=== PATIENT | male | born 1940 | race Caucasian/White ===

== ENCOUNTER 2018-01-11 21:23 | Observation (INO) | payer MEDICARE, OTHER ==
[~2018-01-11 21:23] MED LIST: ISOVUE-370 76%-LOCM 1 ML ONE
[2018-01-11 21:49] LABS: #Eosinphils 0.2 thou/uL (0.0-0.7); #Lymphocytes 2.7 thou/uL (1.20-3.40); #Monocytes 0.6 thou/uL (0.11-0.59); #Neutrophils 2.6 thou/uL (1.40-6.50); %Basophils 0.7 % (0.0-1.0); %Eosinophils 3.6 % (0.0-10.0); %Lymphocytes 43.4 % (21.0-51.0); %Monocytes 10.3 % (0.0-10.0); %Neutrophils 42.1 % (42.0-75.0); Hemoglobin 12.5 g/dL (14.0-18.0); Mean Corpuscular HGB CONC 34.6 g/dL (32.0-36.0); Mean Corpuscular Hemoglobin 31.9 pg (27.0-31.0); Mean Corpuscular Volume 92.2 fl (80.0-94.0); Mean Platelet Volume 6.3 fL (7.4-10.4); Platelet Count 270 thou/uL (130-400); Red Blood Cell (RBC) Count 3.93 mill/uL (4.70-6.10); White Blood Cell (WBC) Count 6.2 thou/uL (4.8-10.8)
[2018-01-11 21:59] LABS: ALT (SGPT) 11 U/L (8-55); AST (SGOT) 18 U/L (5-34); Albumin 4.1 g/dL (3.4-4.8); Alkaline Phosphatase 85 U/L (40-150); Anion Gap 12 mmol/L (10-20); BUN (Urea Nitrogen) 19 mg/dL (8.4-25.7); Bilirubin, Total 0.2 mg/dL (0.2-1.2); CK (CPK) 52 U/L (30-200); Calc. Creatinine Clearance 0 mL/min (70-130); Calcium 9.3 mg/dL (7.8-10.44); Carbon Dioxide 28 mmol/L (23-31); Chloride 101 mmol/L (98-107); Estimated GFR-MDRD 69; Globulin 3.1 g/dL (2.4-3.5); Glucose 100 mg/dL (83-110); Potassium 4.1 mmol/L (3.5-5.1); Protein, Total 7.2 g/dL (5.8-8.1); Sodium 137 mmol/L (136-145)
--- NOTE | 2018-01-11 22:00 | RAD ---
PORTABLE CHEST: 01/11/18 HISTORY: Chest pain. Lung gaspar are clear. No infiltrate or vascular congestion. Heart size is within normal range. Posto p sternotomy changes noted. IMPRESSION: No acute finding. POS: [facility]
[2018-01-11 22:03] LABS: CKMB 0.9 ng/mL (0-6.6); Troponin I Less than 0.010 ng/mL (< 0.028)
[2018-01-11] MEDS ORDERED: Labetalol HCl 100 MG/20 ML VIAL ONE (22:40)
--- NOTE | 2018-01-11 22:59 | CT ---
CT AORTOGRAM CHEST AND ABDOMEN WITH CONTRAST: 01/11/18 Multiple axial tomograms obtained through the chest and abdomen with arterial phase contrast. Multipl hallie reconstructions with 3D postprocessing performed. INDICATIONS: Chest pain. radiation to back. History of abdominal aortic aneurysm. Assess for dissection. FINDINGS: the thoracic aorta shows atherosclerotic change. There is mild aneurysmal ectasia of the ascending ao rta with measurement recorded at approximately 3.8 cm in the axial plane. Mild ectasia of the descend ing thoracic aorta also noted. Upper descending thoracic aorta measured at 3.3 cm. There is periphera l thrombus and calcification. No evidence of thoracic aortic dissection. Abdominal aorta shows atherosclerotic change with peripheral calcification and peripheral soft plaque which produces irregularity of the lumen. There is aneurysmal dilatation of the distal abdominal aor ta with diameter measuring 3.9 to 4.0 cm. the small saccular aneurysm does have peripheral soft plaqu e/thrombus. It extends to the bifurcation. There is mild ectasia of the left common iliac measured at 1.5 cm. The right common iliac is normal caliber. There is no evidence of abdominal aortic dissectio n. No significant stenosis at the origin of the celiac artery or superior mesenteric artery. No signific ant renal artery stenosis identified. The visualized lung gaspar are clear. No infiltrate or effusion. The liver, spleen and pancreas are unremarkable. Bilateral renal cystic lesions. Kidneys otherwise un remarkable. Bowel loops unremarkable as visualized. IMPRESSION: 1. Atherosclerotic changes involving the thoracic and abdominal aorta with mild aneurysmal dilat ation of the thoracic aorta as described. 2. Mild aneurysmal dilatation of the lower abdominal aorta measuring up to 4.5 cm as described. No evidence of aortic dissection. POS: [facility]
[2018-01-11 23:24] LABS: Bilirubin Negative (Negative); Blood, Urine Negative (Negative); Clarity CLEAR (Clear); Glucose, Urine (Dipstick) Negative (Negative); Leukocyte Negative (Negative); Nitrite Negative (Negative); Protein, Urine (Dipstick) Negative (Neg-Trace); Specific Gravity, Urine 1.012 (1.002-1.036); Urobilinogen 0.2 mg/dL (0.2-1.0); pH, Urine 6.5 (5.0-9.0)
[2018-01-11] MEDS ORDERED: Morphine 4 MG/ML VIAL ONE (23:35)
[2018-01-11] MEDS ORDERED: Ondansetron HCl/PF 4 MG/2 ML Vial ONE (23:35)
[2018-01-12 01:34] LABS: Troponin I Less than 0.010 ng/mL (< 0.028)
--- NOTE | 2018-01-12 01:49 | PDOC.FPRHP ---
- History of Present Illness Chief Complaint: Chest pain History of Present Illness: 77 yo male with a pmhx of AL X2 (last one in 2012) and 3V CABG in 2004 who presents with chest pain. He describes it as across his entire chest. He also complains of some indigestion and nausea. He says that this chest pain radiate to his back; denies radiation up his jaw or down his arm and denies diaphoresis. The chest pain occurred right after eating dinner where he ate a hamburger and a piece of cake. States the he feels like the chest pain could also be a gas bubble after eating lunch. He says that his procurement internship is Dr. Alisha Álvarez and PCP is Dr. Uvaldo Álvarez who are in [place]. He had a stress test last week for similar chest pain in which the procurement internship told him it was abnormal but he doesn't know what was abnormal about it. He says that 2 weeks ago he had a similar pain which is what promted the stress test. He reported that he also was found to have enlarged lymph nodes on a recent CT scan as well. He endorses smoking a little less than a pack of cigarettes a day but used to smoke 2 ppd. He denies any difficulty breathing. He has a pertinent family hx of a brother who from cancer and another brother who in his 40s from an AL. He also endorses recent weight loss. ED Course: In ED: There was concern for aortic dissection, however CTA showed stable 4.5cm Aortic Aneurysm. CV Surgery was consulted and will see patient in the morning. He received Zofran 4mg IVP, Morphine 4mg IVP, Labetalol 10mg IVP in the ED, and was given Clonidine 0.1mg and ASA prior to arrival to the ED. - Allergies/Adverse Reactions Allergies Allergy/AdvReac Type Severity Reaction Status Date / Time No Known Allergies Allergy Verified 01/12/18 02:11 - Home Medications Medication Instructions Recorded Confirmed Type Acetaminophen With Codeine 1 tablet PO BID PRN 01/12/18 01/12/18 History [Tylenol with Codeine #3] Aspirin [Ecotrin] 81 mg PO DAILY 01/12/18 01/12/18 History Atorvastatin Calcium [Lipitor] 40 mg PO HS 01/12/18 01/12/18 History Butalbital/Aspirin/Caffeine 1 tab PO DAILY PRN 01/12/18 01/12/18 History [Xdenva-Imwwkho-Twbbk 50-325-40] Carvedilol [Coreg] 6.25 mg PO BID 01/12/18 01/12/18 History Clopidogrel Bisulfate [Plavix] 75 mg PO HS 01/12/18 01/12/18 History Diltiazem HCl [Diltiazem ER] 120 mg PO DAILY 01/12/18 01/12/18 History Fluticasone Propionate [Flonase 2 spray EA NARE BID 01/12/18 01/12/18 History Nasal [place]] Isosorbide Mononitrate [Isosorbide 30 mg PO DAILY 01/12/18 01/12/18 History Mononitrate ER] Losartan Potassium 25 mg PO BID 01/12/18 01/12/18 History Montelukast Sodium [Singulair] 10 mg PO HS 01/12/18 01/12/18 History Ondansetron [Ondansetron ODT] 4 mg PO BID PRN 01/12/18 01/12/18 History Pantoprazole [Protonix] 40 mg PO DAILY 01/12/18 01/12/18 History Vit C/E/Zn/Coppr/Lutein/Zeaxan 1 capsule PO DAILY 01/12/18 01/12/18 History [Preservision Areds 2 Softgel] cloNIDine [Catapres] 0.1 mg PO BID PRN 01/12/18 01/12/18 History - History PMHx: HTN, HLD, CAD s/p 3V CABG (2004), Hx of AL x2 (most recent 2012); GERD, COPD, Hx of a TIA, AAA ~4.5cm medically managed PSHx: appendectomy, vasectomy FHx:brother-AL in 40s, ; brother-cancer, , prostate Social: smokes ~1ppd, with prior hx of 2ppd, drinks occasionally, denies drug use - Review of Systems General: reports: weight/appetite/sleep changes (weight loss ~6 pounds). denies : fever/chills ENT: denies: nasal congestion, rhinorrhea Respiratory: denies: cough, congestion, shortness of breath Cardiovascular: reports: chest pain. denies: palpitation, edema, paroxysmal nocturnal dyspnea, orthopnea Gastrointestinal: reports: nausea. denies: vomiting, diarrhea, constipation, abdominal pain, GI bleeding Genitourinary: denies: incontinence, dysuria Skin: denies: rashes, lesions Musculoskeletal: denies: pain, tenderness Neurological: denies: numbness, syncope Psychological: denies: anxiety, depression - Vital signs BP: 107/55 HR: 54 RR: 12 Tmax: 98.4 Pox: 96% on RA Wt: 90kg - Physical Exam Constitutional: NAD, awake, alert and oriented, well developed HEENT: normocephalic and atraumatic, PERRLA, conjunctiva clear, no scleral icterus, grossly normal vision, grossly normal hearing, normal nasal mucosa, MMM Neck: supple, trachea midline Chest: no-tender to palpation Heart: other (distant heart sounds) Lungs: other (decreased breath sounds bilaterally throughout all lung gaspar) Abdomen: soft, non-tender, no masses/distention, other (hypoactive bowel sounds) Musculoskeletal: normal structure, normal tone Neurological: no focal deficit Skin: no rash/lesions, good turgor Heme/Lymphatic: no unusual bruising or bleeding, no purpura Psychiatric: normal mood and affect FMR H&P: Results - Labs Result Diagrams: 01/12/18 04:24 01/12/18 04:24 Lab results: WBC 6.2 thou/uL (4.8-10.8) 01/11/18 21:30 Hgb 12.5 g/dL (14.0-18.0) L 01/11/18 21:30 Hct 36.2 % (42.0-52.0) L 01/11/18 21:30 MCV 92.2 fl (80.0-94.0) 01/11/18 21:30 Plt Count 270 thou/uL (130-400) 01/11/18 21:30 Neutrophils % 42.1 % (42.0-75.0) 01/11/18 21:30 Sodium 137 mmol/L (136-145) 01/11/18 21:30 Potassium 4.1 mmol/L (3.5-5.1) 01/11/18 21:30 Chloride 101 mmol/L (98-107) 01/11/18 21:30 Carbon Dioxide 28 mmol/L (23-31) 01/11/18 21:30 BUN 19 mg/dL (8.4-25.7) 01/11/18 21:30 Creatinine 1.04 mg/dL (0.6-1.3) 01/11/18 21:30 Glucose 100 mg/dL (83-110) 01/11/18 21:30 Calcium 9.3 mg/dL (7.8-10.44) 01/11/18 21:30 Total Bilirubin 0.2 mg/dL (0.2-1.2) 01/11/18 21:30 AST 18 U/L (5-34) 01/11/18 21:30 ALT 11 U/L (8-55) 01/11/18 21:30 Alkaline Phosphatase 85 U/L (40-150) 01/11/18 21:30 Creatine Kinase 52 U/L (30-200) 01/11/18 21:30 CK-MB (CK-2) 0.9 ng/mL (0-6.6) 01/11/18 21:30 Serum Total Protein 7.2 g/dL (5.8-8.1) 01/11/18 21:30 Albumin 4.1 g/dL (3.4-4.8) 01/11/18 21:30 Lipase 59 U/L (8-78) 01/11/18 21:30 Urine Ketones Negative mg/dL (Negative) 01/11/18 23:16 Urine Blood Negative (Negative) 01/11/18 23:16 Urine Nitrite Negative (Negative) 01/11/18 23:16 Ur Leukocyte Esterase Negative (Negative) 01/11/18 23:16 - EKG Interpretation EKG: NSR - Radiology Interpretation Other Additional comment: CT dissection: negative for dissection; AAA ~4.5cm CXR: No acute findings FMR H&P: A/P - Problem List (1) Atypical chest pain Current Visit: Yes Status: Acute Code(s): R07.89 - OTHER CHEST PAIN (2) AAA (abdominal aortic aneurysm) Current Visit: Yes Status: Acute Code(s): I71.4 - ABDOMINAL AORTIC ANEURYSM , WITHOUT RUPTURE (3) HTN (hypertension) Current Visit: Yes Status: Acute Code(s): I10 - ESSENTIAL (PRIMARY) HYPERTENSION (4) HLD (hyperlipidemia) Current Visit: Yes Status: Acute Code(s): E78.5 - HYPERLIPIDEMIA, UNSPECIFIED (5) CAD (coronary artery disease) Current Visit: Yes Status: Acute Code(s): I25.10 - ATHSCL HEART DISEASE OF [place] CORONARY ARTERY W/O ANG PCTRS (6) S/P CABG x 3 Current Visit: Yes Status: Acute Code(s): Z95.1 - PRESENCE OF AORTOCORONARY BYPASS GRAFT (7) Hx of myocardial infarction Current Visit: Yes Status: Acute Code(s): I25.2 - OLD MYOCARDIAL INFARCTION (8) GERD (gastroesophageal reflux disease) Current Visit: Yes Status: Acute Code(s): K21.9 - GASTRO-ESOPHAGEAL REFLUX DISEASE WITHOUT ESOPHAGITIS (9) Tobacco abuse Current Visit: Yes Status: Acute Code(s): Z72.0 - TOBACCO USE (10) COPD (chronic obstructive pulmonary disease) Current Visit: Yes Status: Acute - Plan 1.) Atypical Chest pain- However, patient has an extensive cardiac hx of AL X2 and s/p 3V CABG in 2004. We will order a FLP, HgA1c, BNP. We will trend his cardiac enzymes. First troponin was wnl. EKG showed NSR. We will increase Atorvastatin from 40mg to 80mg and continue home medications. We will call procurement internship in am to find out results of stress test that was completed a week ago. We will likely hold off on ordering a stress test here or consulting cardiology since he just had a stress test and his trops and EKG have been normal. However, he is NPO mainly because CV surgery was consulted in the ED and are planning to see him this am for his AAA. We will provide Morphine, Nitro PRN. Possibly indigestion, will try GI cocktail if pain returns. Continue aspirin 81mg daily and plavix. 2) HTN - Uncontrolled. Continue home medications. Titrate as needed. 3) HLD - Fasting lipid panel pending. However, we plan to increase his atorvastatin to 80mg daily. Continue home medications 4) COPD - Controlled. Continue home medications. 5) Tobacco abuse - Soft Iron Inspector on cessation and provide a nicotine patch. 6) Aortic Aneurysm- stable, f/u with Dr. Drummond's recommendations 7) MARY vs CKD. Unclear of pt's baseline. F/u with BMP in the am. 8) GERD - Protonix FMR H&P: Upper Level - Pertinent history This is a 77 yo WM w/ significant PMH of CAD s/p CABG in 2004, AL in 2013, Aortic Aneurysm medically treated, TIA, COPD, Tobacco abuse, presents w/ chest pain radiating to his back. Denies any radiation to his arms, or neck. + SOB and nausea associated with it. CP happened after he had eaten lunch. States that it felt like a gas bubble, and improved after morphine. Patient states that he had an abnormal stress test about 2 weeks ago with his procurement internship, but unsure what was abnormal about it. He is suppose to see his procurement internship later today. PE: Gen: AOx4. In no acute distress. Resting comfortably. CV: RRR. Distant heart sounds. Lungs: CTA bilaterally, but diminished. Abd: Non tender to palpation Ext: No LE edema. Diminished pulses bilaterally A/P: 1) Atypical Chest pain r/o ACS - Patient has multiple risk factors for ACS. ASA , FLP, HgA1c, BNP, CE x3. We will increase Atorvastatin from 40mg to 80mg and continue home medications. Call procurement internship in am to find out results of stress test. Morphine, Nitro PRN. Possibly indigestion, will try GI cocktail if pain returns. 2) HTN - continue home medications. 3) HLD - Continue home medications 4) COPD - Continue home medications 5) Tobacco abuse - Soft Iron Inspector on cessation 6) Aortic Aneurysm stable - f/u with Dr. Drummond's recommendations 7) MARY vs CKD. F/u with BMP in the am. 8) GERD - Protonix - Plan Date/Time: 01/12/18 [id number] I, [], have evaluated this patient and agree with findings/plan as outlined by research program internship resident. Pertinent changes/additions are listed here. Attending Addendum - Attending Addendum Date/Time: 01/12/18 3286 I personally evaluated the patient and discussed the management with Dr. Johansen. I agree with and repeated the History, Examination, Assessment and Plan documented above with any addition or exceptions noted below. Pt currently chest pain free. He says he has been to the ED "a lot" for this type of chest pain, and it is different from his cp that lead to his cabg, which went to his neck and down his arms. Exam as above. A/P: 77 y/o with h/o CAD with chest pain -will call his procurement internship for results of recent stress test, strongly consider cardiology consultation
[2018-01-12 02:15] VITALS: BMI 29.0
[2018-01-12] MEDS ORDERED: Ondansetron ODT 4 MG TAB PO PRN ×2 (02:29→04:43)
[2018-01-12] MEDS ORDERED: Nitroglycerin 0.4 MG TAB (25 Tab Bottle) PO PRN (02:34)
[2018-01-12] MEDS ORDERED: cloNIDine 0.1 MG TAB PO PRN (04:43)
[2018-01-12 05:24] LABS: #Basophils 0.1 thou/uL (0.0-0.2); #Eosinphils 0.2 thou/uL (0.0-0.7); #Monocytes 0.5 thou/uL (0.11-0.59); #Neutrophils 2.3 thou/uL (1.40-6.50); %Basophils 1.1 % (0.0-1.0); %Eosinophils 4.5 % (0.0-10.0); %Lymphocytes 39.7 % (21.0-51.0); %Monocytes 9.6 % (0.0-10.0); %Neutrophils 45.1 % (42.0-75.0); Hemoglobin 10.7 g/dL (14.0-18.0); Mean Corpuscular HGB CONC 34.8 g/dL (32.0-36.0); Mean Corpuscular Hemoglobin 33.2 pg (27.0-31.0); Mean Corpuscular Volume 95.4 fl (80.0-94.0); Mean Platelet Volume 6.7 fL (7.4-10.4); Platelet Count 209 thou/uL (130-400); RBC Distribution Width 12.1 % (11.5-14.5); Red Blood Cell (RBC) Count 3.21 mill/uL (4.70-6.10); White Blood Cell (WBC) Count 5.1 thou/uL (4.8-10.8)
[2018-01-12 05:38] LABS: Hemoglobin A1c 5.5 % (4.0-6.0)
[2018-01-12 05:53] LABS: Anion Gap 12 mmol/L (10-20); BUN (Urea Nitrogen) 18 mg/dL (8.4-25.7); Calc. Creatinine Clearance 82 mL/min (70-130); Calcium 8.5 mg/dL (7.8-10.44); Carbon Dioxide 24 mmol/L (23-31); Cardiac Risk 3.9 (Less than 4.5); Chloride 102 mmol/L (98-107); Cholesterol 124 mg/dl (< 200 Desired); Estimated GFR-MDRD 78; Glucose 122 mg/dL (83-110); HDL Cholesterol 32 mg/dL (>60 Neg Risk); LDL Cholesterol, Calculated 62 mg/dL; Potassium 3.7 mmol/L (3.5-5.1); Sodium 134 mmol/L (136-145); Triglycerides 152 mg/dL (Less than 150); Troponin I Less than 0.010 ng/mL (< 0.028)
--- NOTE | 2018-01-12 07:37 | CON ---
DATE OF CONSULTATION: 01/12/2018 This is a 77-year-old gentleman who has lived in [place], [place] until recently moved to [place], [place] to be closer to family. He had a history of coronary bypass grafting in the past by Dr. White and had a history of thoracic and abdominal aneurysms. He presented with some chest discomfort, indigestion and nausea with negative cardiac enzymes. A CT scan showed a 3.9 to 4 cm distal abdominal aortic ane urysm with no significant aneurysmal dilatation in any other part of his aorta. His left internal ma mmary artery graft was visualized and patent and there were 2 saphenous vein grafts that appeared to originate from the ascending aorta, but I could not follow these out distally. He has a history of h ypertension, dyslipidemia. He has a history of COPD, history of TIA. PAST SURGICAL HISTORY: Includes a CABG, appendectomy, vasectomy. SOCIAL HISTORY: He continues to smoke a pack of cigarettes a day. PHYSICAL EXAMINATION: GENERAL: He is a stable appearing gentleman in no distress, he was actually awakened from his sleep for this interview. His height is 5 feet 9 inches. His weight is 197. VITAL SIGNS: His blood pressure is about 100/60, heart rate 60. NECK: No carotid bruits. LUNGS: Clear to auscultation. CARDIAC: Regular rate and rhythm this morning. Somewhat distant heart sounds. ABDOMEN: Soft and nontender and I am unable to palpate his aneurysm. EXTREMITIES: Without edema and he has weak, but present posterior tibial pulses with evidence of sap henous vein harvesting from the left leg. PLAN: At this time, no further intervention needs to be considered for his abdominal aneurysm other than yearly ultrasonography and I have discussed this with the patient and family.
[2018-01-12] MEDS ORDERED: FLUTICASONE PROPIONATE EA NARE SCH (09:00)
[2018-01-12] MEDS ORDERED: Aspirin 81 mg Enteric Coated Tablet PO SCH ×3 (09:00)
[2018-01-12] MEDS ORDERED: Losartan 25 MG TAB PO SCH ×2 (09:00)
[2018-01-12] MEDS ORDERED: Aspirin 325 mg Enteric Coated Tablet PO SCH (09:00)
[2018-01-12] MEDS ORDERED: Fluticasone Propionate Nasal Spray 16 gm Bottle NASAL SCH ×2 (09:00)
[2018-01-12] MEDS ORDERED: Nicotine 21 MG PATCH TD SCH (09:00)
[2018-01-12] MEDS ORDERED: DILTIAZEM HCL 120 MG PO SCH (09:00)
[2018-01-12] MEDS ORDERED: PANTOPRAZOLE 40 MG PO SCH (09:00)
[2018-01-12] MEDS ORDERED: Carvedilol 6.25 MG TAB PO SCH ×2 (09:00)
[2018-01-12 11:33] VITALS: BP 127/59; TEMP 98.3
[2018-01-12] MEDS: CARVEDILOL 6.25 MG PO SCH ×2 (12:43→13:27)
[2018-01-12] MEDS: DILTIAZEM CD 120 MG PO SCH ×2 (12:44→13:28)
[2018-01-12] MEDS: ISOSORBIDE MONONITRATE 30 MG PO SCH ×2 (12:44→13:27)
[2018-01-12] MEDS: LOSARTAN 25 MG PO SCH ×2 (12:44→13:28)
--- NOTE | 2018-01-12 13:22 | PDOC.EVN ---
Event Note - Event Note Event Note: 01/12/18 1:21 Spoke with SECURITY MANAGEMENT SPECIALIST at Dr Álvarez's office (patient's nut packer) and they recommended another cath soon for minor stress test changes and continued chest pain. He underwent the stress test 2 weeks ago and was Rx nitrates for chest pain as needed until cath was scheduled. Patient has a scheduled f/u appt tomorrow and office was happy to reschedule as needed. Also spoke with Dr Dominique who recommended Med Rec include Nitros and BB prior to discharge and given negative w/u this hospital stay he can f/u with his nut packer tomorrow. Ace Marinelli DO <Ace Marinelli - Last Filed: 01/12/18 13:14> Attending Addendum - Attending Addendum Date/Time: 01/13/18 1011 I personally evaluated the patient and discussed the management with Dr. Marinelli. I agree with the History, Examination, Assessment and Plan documented above with any addition or exceptions noted below. Ok for discharge, already has follow up scheduled tomorrow. <Kyle Deleon - Last Filed: 01/13/18 10:11>
[2018-01-12] MEDS ORDERED: Atorvastatin Calcium 40 MG TAB PO SCH ×2 (21:00)
[2018-01-12] MEDS ORDERED: ATORVASTATIN CALCIUM 40 MG PO SCH (21:00)
[2018-01-12] MEDS ORDERED: Clopidogrel Bisulfate 75 MG TAB PO SCH ×2 (21:00)
[2018-01-12] MEDS ORDERED: MONTELUKAST SODIUM 10 MG PO SCH (21:00)
[2018-01-12] MEDS ORDERED: CLOPIDOGREL BISULFATE 75 MG PO SCH (21:00)
[2018-01-12] MEDS ORDERED: Montelukast Sodium 10 mg Tablet PO SCH ×2 (21:00)
--- NOTE | 2018-01-13 04:03 | DIS-2 ---
DATE OF ADMISSION: 01/12/2018 DATE OF DISCHARGE: 01/12/2018 RESIDENT: Ace Marinelli DO ADMITTING ATTENDING: Kyle Deleon MD DISCHARGE ATTENDING: Kyle Deleon MD CONSULTATION DURING THIS ADMISSION: Cardiothoracic Surgery was consulted for AAA. PROCEDURES: There were no procedures during the stay. PRIMARY DIAGNOSES: Atypical chest pain, abdominal aortic aneurysm. SECONDARY DIAGNOSES: Hypertension, history of coronary artery disease, gastroesophageal reflux disea se. DISCHARGE MEDICATIONS: Aspirin 81 mg daily, atorvastatin 80 mg daily, Coreg 6.25 mg daily, clonidine 0.1 p.o. b.i.d. as needed, Plavix 75 mg p.o. nightly, diltiazem 120 mg p.o. daily, fluticasone nasal spray b.i.d. schedule, isosorbide mononitrate 30 mg p.o. daily, losartan 25 mg p.o. b.i.d., Singulai r 10 mg p.o. nightly. HOSPITAL COURSE: Mr. Chaparro was admitted to observation for chest pain given his severe history of CAD with recent CABG and DE. His workup was negative including trended troponins, EKGs, and chest pa in resolved within 12 hours likely due to GI illness. He has a followup with his optical element coater in his hometown 2 [place]3 hours away tomorrow. He will likely need cardiac catheterization. Abdominal aortic aneurysm was also evaluated while here in the hospital by Cardiothoracic Surgery and deemed nonsurgic al at this time. Continue following with ultrasounds yearly. Patient's blood pressure was controlle d while in the hospital on home medications. DISPOSITION: Stable. DISCHARGE INSTRUCTIONS: 1. Location: Home. 2. Diet: Cardiac diet. 3. Activity: Limited physical activity until he follows up with Cardiology. 4. Followup: Cardiology tomorrow.
--- NOTE | 2018-01-15 14:23 | EKG ---
Test Reason : Blood Pressure : / mmHG Vent. Rate : 069 BPM Atrial Rate : 069 BPM P-R Int : 186 ms QRS Dur : 100 ms QT Int : 412 ms P-R-T Axes : 062 078 059 degrees QTc Int : 441 ms Normal sinus rhythm Normal ECG Confirmed by ELMA PAIZ M.D. ([id number]), publication editor KATHLEEN BAUTISTA ([id number]) on 01/15/2018 2:21:57 PM Referred By: Confirmed By:ELMA PAIZ M.D.
== END 2018-01-12 14:52 | disposition home or self-care (01) ==
LOC: ERS 21:23 → 2SW 01-12 01:39
PROVIDERS: ADMIT Family Medicine; ATTEND Family Medicine
DX: R07.89 Other chest pain (principal); I71.4 Abdominal aortic aneurysm, without rupture; I10 Essential (primary) hypertension; I25.10 Atherosclerotic heart disease of native coronary artery without angina pectoris; K21.9 Gastro-esophageal reflux disease without esophagitis; I25.2 Old myocardial infarction; K30 Functional dyspepsia; R11.0 Nausea; F17.210 Nicotine dependence, cigarettes, uncomplicated; J44.9 Chronic obstructive pulmonary disease, unspecified; E78.5 Hyperlipidemia, unspecified; Z79.82 Long term (current) use of aspirin; Z79.02 Long term (current) use of antithrombotics/antiplatelets; Z79.51 Long term (current) use of inhaled steroids; Z79.899 Other long term (current) drug therapy; Z98.52 Vasectomy status; Z95.1 Presence of aortocoronary bypass graft; Z90.49 Acquired absence of other specified parts of digestive tract; Z86.73 Personal history of transient ischemic attack (TIA), and cerebral infarction without residual deficits
CPT/HCPCS: 71045; 71275; 80048; 80053; 80061; 81003; 82550; 82553; 83036; 83690; 83880; 84484 ×3; 85025 ×2; 93005; 96374; 96375; 99285; 99406; G0378; 36415; J2270; J2405

== ENCOUNTER 2018-01-15 20:15 | Emergency (ER) | payer MEDICARE, OTHER ==
[2018-01-15 20:41] LABS: #Basophils 0.1 thou/uL (0.0-0.2); #Eosinphils 0.2 thou/uL (0.0-0.7); #Lymphocytes 1.9 thou/uL (1.20-3.40); #Monocytes 0.5 thou/uL (0.11-0.59); #Neutrophils 2.6 thou/uL (1.40-6.50); %Basophils 1.2 % (0.0-1.0); %Eosinophils 3.7 % (0.0-10.0); %Lymphocytes 35.9 % (21.0-51.0); %Monocytes 10.4 % (0.0-10.0); %Neutrophils 48.8 % (42.0-75.0); Hemoglobin 12.2 g/dL (14.0-18.0); Mean Corpuscular HGB CONC 35.2 g/dL (32.0-36.0); Mean Corpuscular Hemoglobin 32.5 pg (27.0-31.0); Mean Corpuscular Volume 92.3 fl (80.0-94.0); Mean Platelet Volume 6.2 fL (7.4-10.4); Platelet Count 267 thou/uL (130-400); RBC Distribution Width 12.1 % (11.5-14.5); Red Blood Cell (RBC) Count 3.75 mill/uL (4.70-6.10); White Blood Cell (WBC) Count 5.2 thou/uL (4.8-10.8)
--- NOTE | 2018-01-15 20:43 | RAD ---
TWO VIEWS OF THE CHEST: 01/15/18 COMPARISON: 01/11/18 HISTORY: Weakness, chest pain and nausea. FINDINGS: No pneumothorax, pleural fluid, focal consolidation, or alveolar edema. Midline sternotomy wires are noted. Lungs are hyperinflated suggesting stable air trapping. IMPRESSION: Stable pulmonary hyperinflation. No focal consolidation or alveolar edema. POS: [facility]
[2018-01-15 21:03] LABS: ALT (SGPT) 12 U/L (8-55); AST (SGOT) 20 U/L (5-34); Albumin 3.9 g/dL (3.4-4.8); Alkaline Phosphatase 71 U/L (40-150); Anion Gap 14 mmol/L (10-20); BUN (Urea Nitrogen) 19 mg/dL (8.4-25.7); Bilirubin, Total 0.3 mg/dL (0.2-1.2); CK (CPK) 53 U/L (30-200); Calc. Creatinine Clearance 0 mL/min (70-130); Calcium 9.2 mg/dL (7.8-10.44); Carbon Dioxide 25 mmol/L (23-31); Chloride 102 mmol/L (98-107); Estimated GFR-MDRD 82; Globulin 2.8 g/dL (2.4-3.5); Glucose 106 mg/dL (83-110); Potassium 3.9 mmol/L (3.5-5.1); Protein, Total 6.7 g/dL (5.8-8.1); Sodium 137 mmol/L (136-145)
[2018-01-15 21:06] LABS: CKMB 0.9 ng/mL (0-6.6); Troponin I Less than 0.010 ng/mL (< 0.028)
--- NOTE | 2018-01-15 22:15 | CT ---
HEAD CT WITHOUT CONTRAST: 01/15/18 COMPARISON: None. HISTORY: Pain. TECHNIQUE: Serial axial CT imaging at 5 mm intervals from vertex through skull base without contrast. FINDINGS: There is a lateral scalp lipoma in the left frontal region on image 21. The imaged paranasal sinuses/ mastoid air cells are well aerated. There is atherosclerotic calcification of the cavernous carotid a rteries. There is no intracranial hemorrhage, midline shift, mass effect, or ventricular enlargement. There is periventricular hypodensity suggesting a degree of small vessel disease. IMPRESSION: Findings suggesting small vessel disease. No intracranial hemorrhage. POS: [facility]
[2018-01-15] MEDS ORDERED: Acetaminophen 500 MG TAB ONE (22:21)
[2018-01-15] MEDS ORDERED: Meclizine HCl 25 MG TAB ONE (22:21)
== END 2018-01-15 23:48 | disposition home or self-care (01) ==
LOC: ERS 20:15
DX: R51 Headache (principal); R42 Dizziness and giddiness; I10 Essential (primary) hypertension; I25.2 Old myocardial infarction; K21.9 Gastro-esophageal reflux disease without esophagitis; E78.5 Hyperlipidemia, unspecified; J44.9 Chronic obstructive pulmonary disease, unspecified; F17.210 Nicotine dependence, cigarettes, uncomplicated; Z86.73 Personal history of transient ischemic attack (TIA), and cerebral infarction without residual deficits; Z71.6 Tobacco abuse counseling
CPT/HCPCS: 36415; 70450; 71046; 80053; 82553; 83880; 84484; 85025; 93005; 99406

== ENCOUNTER 2018-02-27 15:34 | Emergency (ER) | payer MEDICARE, OTHER ==
[2018-02-27 16:31] LABS: Bilirubin Negative (Negative); Blood, Urine Negative (Negative); Clarity CLEAR (Clear); Glucose, Urine (Dipstick) Negative (Negative); Leukocyte Negative (Negative); Nitrite Negative (Negative); Protein, Urine (Dipstick) Negative (Neg-Trace); Specific Gravity, Urine 1.012 (1.002-1.036); Urobilinogen 0.2 mg/dL (0.2-1.0)
[2018-02-27 17:14] LABS: #Eosinphils 0.7 thou/uL (0.0-0.7); #Lymphocytes 1.3 thou/uL (1.20-3.40); #Monocytes 0.7 thou/uL (0.11-0.59); #Neutrophils 5.5 thou/uL (1.40-6.50); %Basophils 0.1 % (0.0-1.0); %Eosinophils 8.5 % (0.0-10.0); %Lymphocytes 15.5 % (21.0-51.0); %Monocytes 8.4 % (0.0-10.0); %Neutrophils 67.6 % (42.0-75.0); Hemoglobin 11.4 g/dL (14.0-18.0); Mean Corpuscular HGB CONC 35.2 g/dL (32.0-36.0); Mean Corpuscular Hemoglobin 32.8 pg (27.0-31.0); Mean Corpuscular Volume 93.3 fl (80.0-94.0); Mean Platelet Volume 6.2 fL (7.4-10.4); Platelet Count 230 thou/uL (130-400); RBC Distribution Width 12.3 % (11.5-14.5); Red Blood Cell (RBC) Count 3.46 mill/uL (4.70-6.10); White Blood Cell (WBC) Count 8.1 thou/uL (4.8-10.8)
[2018-02-27] MEDS ORDERED: Ondansetron ODT 4 MG TAB ONE (17:27)
[2018-02-27] MEDS ORDERED: Morphine 4 MG/ML VIAL ONE (17:27)
[2018-02-27 17:48] LABS: ALT (SGPT) 13 U/L (8-55); AST (SGOT) 18 U/L (5-34); Albumin 3.8 g/dL (3.4-4.8); Alkaline Phosphatase 67 U/L (40-150); Anion Gap 13 mmol/L (10-20); BUN (Urea Nitrogen) 17 mg/dL (8.4-25.7); Bilirubin, Total 0.7 mg/dL (0.2-1.2); Calc. Creatinine Clearance 0 mL/min (70-130); Calcium 8.9 mg/dL (7.8-10.44); Carbon Dioxide 24 mmol/L (23-31); Chloride 100 mmol/L (98-107); Estimated GFR-MDRD 65; Globulin 2.7 g/dL (2.4-3.5); Glucose 103 mg/dL (83-110); Potassium 4.2 mmol/L (3.5-5.1); Protein, Total 6.5 g/dL (5.8-8.1); Sodium 133 mmol/L (136-145)
--- NOTE | 2018-02-27 21:36 | CT ---
CT ABDOMEN AND PELVIS WITH ORAL AND IV CONTRAST: Date: 02/27/18 HISTORY: Abdominal pain. FINDINGS: Correlation is made with CT aortic dissection protocol of 01/11/18. The lung bases are unremarkable. A small hiatal hernia is present. The liver, spleen, pancreas, and a drenal glands are normal. Bilateral renal cysts are again seen. No calcified gallstones are identifie d. No free air, free fluid, or lymphadenopathy is seen in the abdomen or pelvis. There are vascular calc ifications with a stable 4.0 cm abdominal aortic aneurysm and a 15.0 mm left common iliac artery aneu rysm. There are degenerative changes in the spine. The small bowel loops are not abnormally dilated. The prostate is enlarged. IMPRESSION: 1. Small hiatal hernia. 2. Bilateral renal cysts. 3. 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 4. Prostatic enlargement. POS: [facility]
--- NOTE | 2018-04-16 15:09 | EKG ---
Test Reason : ABD PAIN Blood Pressure : / mmHG Vent. Rate : 066 BPM Atrial Rate : 066 BPM P-R Int : 180 ms QRS Dur : 098 ms QT Int : 408 ms P-R-T Axes : 060 074 059 degrees QTc Int : 427 ms Normal sinus rhythm Nonspecific ST abnormality Abnormal ECG Confirmed by HECTOR GRIFFIN ([id number]), food editor KATHLEEN BAUTISTA ([id number]) on 04/16/2018 3:09:05 PM Referred By: Confirmed By:HECTOR GRIFFIN
== END 2018-02-27 20:01 | disposition home or self-care (01) ==
LOC: ERS 15:34
DX: K59.00 Constipation, unspecified (principal); I25.2 Old myocardial infarction; K21.9 Gastro-esophageal reflux disease without esophagitis; E78.5 Hyperlipidemia, unspecified; I10 Essential (primary) hypertension; J44.9 Chronic obstructive pulmonary disease, unspecified; F17.210 Nicotine dependence, cigarettes, uncomplicated; Z79.899 Other long term (current) drug therapy; Z86.73 Personal history of transient ischemic attack (TIA), and cerebral infarction without residual deficits; Z79.82 Long term (current) use of aspirin
CPT/HCPCS: 74177; 80053; 81003; 85025; 93005; 96361; 96374; J2270; Q0162

== ENCOUNTER 2018-09-19 19:23 | Emergency (ER) | payer MEDICARE, OTHER ==
[2018-09-19] MEDS ORDERED: hydrALAZINE 20 MG/ML VIAL ONE (19:51)
[2018-09-19 19:57] LABS: #Eosinphils 0.2 thou/uL (0.0-0.7); #Lymphocytes 2.5 thou/uL (1.20-3.40); #Monocytes 0.6 thou/uL (0.11-0.59); #Neutrophils 3.3 thou/uL (1.40-6.50); %Basophils 0.5 % (0.0-1.0); %Eosinophils 3.2 % (0.0-10.0); %Lymphocytes 37.9 % (21.0-51.0); %Monocytes 9.3 % (0.0-10.0); %Neutrophils 49.2 % (42.0-75.0); Hemoglobin 13.2 g/dL (14.0-18.0); Mean Corpuscular HGB CONC 33.9 g/dL (32.0-36.0); Mean Corpuscular Hemoglobin 33.7 pg (27.0-31.0); Mean Corpuscular Volume 99.4 fL (78.0-98.0); Mean Platelet Volume 6.8 fL (7.4-10.4); Platelet Count 389 thou/uL (130-400); RBC Distribution Width 11.8 % (11.5-14.5); Red Blood Cell (RBC) Count 3.92 mill/uL (4.70-6.10); White Blood Cell (WBC) Count 6.6 thou/uL (4.8-10.8)
--- NOTE | 2018-09-19 20:14 | RAD ---
PORTABLE CHEST: History: Chest pain. FINDINGS: Lung gaspar are clear. Heart and mediastinum unremarkable. Post op sternotomy changes noted. Aortic c alcification noted. No change from the exam of 01-11-18. IMPRESSION: No acute process. POS: [facility]
[2018-09-19 20:15] LABS: Bilirubin Negative (Negative); Blood, Urine Negative (Negative); Clarity CLEAR (Clear); Glucose, Urine (Dipstick) Negative (Negative); Leukocyte Negative (Negative); Nitrite Negative (Negative); Protein, Urine (Dipstick) Negative (Neg-Trace); Specific Gravity, Urine 1.012 (1.002-1.036); Urobilinogen 0.2 mg/dL (0.2-1.0); pH, Urine 6.5 (5.0-9.0)
[2018-09-19 20:18] LABS: ALT (SGPT) 13 U/L (8-55); AST (SGOT) 22 U/L (5-34); Albumin 4.3 g/dL (3.4-4.8); Alkaline Phosphatase 88 U/L (40-150); Anion Gap 13 mmol/L (10-20); BUN (Urea Nitrogen) 17 mg/dL (8.4-25.7); Bilirubin, Total 0.3 mg/dL (0.2-1.2); Calc. Creatinine Clearance 0 mL/min (70-130); Calcium 9.5 mg/dL (7.8-10.44); Carbon Dioxide 27 mmol/L (23-31); Chloride 104 mmol/L (98-107); Estimated GFR-MDRD 68; Globulin 3.7 g/dL (2.4-3.5); Glucose 115 mg/dL (83-110); Potassium 4.7 mmol/L (3.5-5.1); Sodium 139 mmol/L (136-145)
[2018-09-19 20:22] LABS: Troponin I Less than 0.010 ng/mL (< 0.028)
--- NOTE | 2018-09-19 20:45 | CT ---
CT HEAD NONCONTRAST: History: Weakness, generalized. History of stroke. FINDINGS: There is global atrophy, mild in degree. Ventricular system is age appropriate in size. Mild chronic ischemic disease is redemonstrated. There is no acute intracranial hemorrhage, midline shift, or mass effect. IMPRESSION: No acute intracranial abnormalities. POS: [facility]
[2018-09-19] MEDS ORDERED: diphenhydrAMINE 50 MG/ML VIAL ONE ×2 (21:18→21:58)
[2018-09-19] MEDS ORDERED: Metoclopramide HCl 10 MG/2 ML VIAL ONE (21:18)
--- NOTE | 2018-09-19 22:34 | CT ---
CT ABDOMEN AND PELVIS WITH CONTRAST: Technique: Multiple contiguous axial images were obtained through the abdomen and pelvis with IV enha ncement. Indication: Abdominal pain. Comparison: 02-27-18 FINDINGS: Lung bases clear. Liver, spleen, pancreas unremarkable. Adrenal glands unremarkable. Kidneys show several small renal cysts which were described previously and appears stable. No hydrone phrosis or urinary tract calculus. The urinary bladder is mildly distended. There is a mild thickenin g urinary bladder wall. Prostate is upper normal. Small bowel loops appear normal caliber. Appendix n ot identified. Stool throughout the colon. Aneurysmal dilation of the lower abdominal aorta with peripheral thrombus again noted. Diameter measu res approximately 4 cm and appears stable from prior exam. IMPRESSION: No acute finding or interval change noted. Abdominal aortic aneurysm again noted and bilateral renal cystic lesions again noted. POS: [facility]
== END 2018-09-19 23:15 | disposition home or self-care (01) ==
LOC: ERS 19:23
DX: I16.0 Hypertensive urgency (principal); I10 Essential (primary) hypertension; I25.2 Old myocardial infarction; I71.9 Aortic aneurysm of unspecified site, without rupture; K21.9 Gastro-esophageal reflux disease without esophagitis; E78.5 Hyperlipidemia, unspecified; J44.9 Chronic obstructive pulmonary disease, unspecified; F17.210 Nicotine dependence, cigarettes, uncomplicated; Z86.73 Personal history of transient ischemic attack (TIA), and cerebral infarction without residual deficits; Z79.899 Other long term (current) drug therapy; Z79.82 Long term (current) use of aspirin
CPT/HCPCS: 36416; 70450; 71045; 74177; 80053; 81003; 82553; 84484; 85025; 87086; 93005; 96365; 96375; J0360; J1200; J2765